=== PATIENT | male | born 1960 | race Caucasian/White ===

== ENCOUNTER 2020-07-08 14:10 | Outpatient (CLI) | payer BC ==
--- NOTE | 2020-07-08 14:59 | MRI ---
MRI Lumbar Spine WO Con History: Lumbar spondylosis Comparison: None. Findings: Aortic contour is nonaneurysmal. No hydronephrosis. No retroperitoneal periaortic adenopath y. Paraspinal musculature is symmetric. Conus medullaris terminates near the superior L1 endplate. Levels are as follows: L1/L2: Normal disc height and hydration. No neural foraminal or spinal canal narrowing. L2/L3: Mild disc desiccation and height loss. Small circumferential disc osteophyte complex. Left sub foraminal annular fissure. Mild bilateral neural foraminal narrowing. Mild hypertrophic facet arthrosis. L3/L4: Moderate disc desiccation and height loss. Relatively large circumferential disc bulge. Spinal canal is narrowed to 5 mm. Moderate bilateral neural foraminal narrowing with abutment of the bilateral exiting L3 abdomen traversing L4 nerve roots. L4/L5: Moderate disc desiccation and height loss. Relatively large circumferential disc osteophyte co mplex. Moderate to severe left and moderate right hypertrophic facet arthropathy. Moderate to severe left and right neural foraminal narrowing with abutment of both exiting L4 and traversing L5 n erve roots. L5/S1: Mild disc desiccation and height loss posteriorly. Small circumferential disc bulge greatest i n the left lateral recess and subforaminal zone. Moderate hypertrophic facet arthrosis. Mild bilateral neural foraminal narrowing. Impression: [id number] spondylosis lower lumbar spine with multilevel neural foraminal narro wing and single level L3/L4 spinal canal narrowing.
== END 2020-07-08 14:11 | disposition home or self-care (01) ==
LOC: TBSIIMAG 14:10
PROVIDERS: ATTEND Nurse Practitioner Family
DX: M47.816 Spondylosis without myelopathy or radiculopathy, lumbar region (principal); M48.061 Spinal stenosis, lumbar region without neurogenic claudication; I10 Essential (primary) hypertension; E78.00 Pure hypercholesterolemia, unspecified; N41.9 Inflammatory disease of prostate, unspecified; E55.9 Vitamin D deficiency, unspecified
CPT/HCPCS: 36415; 72148; 80053; 80061; 82306; 84153

== ENCOUNTER 2021-06-12 17:30 | Outpatient (CLI) | payer BC | END 2021-06-12 17:31 | disposition home or self-care (01) | LOC: SLEEPLAB 17:30 | PROVIDERS: ATTEND Otolaryngology | DX: G47.33 Obstructive sleep apnea (adult) (pediatric) (principal); R06.83 Snoring; G47.31 Primary central sleep apnea | CPT/HCPCS: 95806 ==

== ENCOUNTER 2021-06-23 19:00 | Outpatient (CLI) | payer BC | END 2021-06-23 19:01 | disposition home or self-care (01) | LOC: SLEEPLAB 19:00 | PROVIDERS: ATTEND Otolaryngology | DX: G47.33 Obstructive sleep apnea (adult) (pediatric) (principal); G47.31 Primary central sleep apnea; G47.10 Hypersomnia, unspecified; E66.9 Obesity, unspecified; Z68.34 Body mass index [BMI] 34.0-34.9, adult | CPT/HCPCS: 95811 ==

== ENCOUNTER 2021-11-03 09:44 | Outpatient (CLI) | payer BC | END 2021-11-03 09:45 | disposition home or self-care (01) | LOC: RAD 09:44 | PROVIDERS: ATTEND Nurse Practitioner Family | DX: M25.562 Pain in left knee (principal) ==

== ENCOUNTER 2023-07-10 10:30 | Outpatient (CLI) | payer BC | END 2023-07-10 10:31 | disposition home or self-care (01) | LOC: RAD 10:30 | PROVIDERS: ATTEND Family Medicine | DX: I82.401 Acute embolism and thrombosis of unspecified deep veins of right lower extremity (principal) ==